=== PATIENT | male | born 1965 | race Asian ===

== ENCOUNTER 2024-06-28 12:19 | Emergency (ER) | payer BC ==
[~2024-06-28] VITALS: Ht 172.7 cm; Wt 68.0 kg
[2024-06-28 12:31] VITALS: BP_SYST 153; PULSE 95; RESP 15; TEMP 98.7; O2SAT 97
[2024-06-28 13:28] LABS: BASOPHILS # (AUTO) 0.1 K/uL (0.0-0.2); BASOPHILS % (AUTO) 0.9 % (0.0-2.0); EOSINOPHILS # (AUTO) 0.4 K/uL (0.0-0.4); EOSINOPHILS % (AUTO) 5.3 % (0.0-4.0); HEMATOCRIT 44.7 % (36-54); HEMOGLOBIN 14.7 g/dL (14.0-18.0); LYMPHOCYTES # (AUTO) 1.4 K/uL (1.0-5.5); LYMPHOCYTES % (AUTO) 19.8 % (20.5-51.5); MEAN CORPUSCULAR HEMOGLOBIN 30 pg (27-31); MEAN CORPUSCULAR HGB CONC 33 % (32-36); MEAN CORPUSCULAR VOLUME 91 fL (79.0-98.0); MONOCYTES # (AUTO) 0.3 K/uL (0.0-1.0); MONOCYTES % (AUTO) 4.8 % (1.7-9.3); NEUTROPHILS # (AUTO) 4.8 K/uL (1.8-7.7); NEUTROPHILS % (AUTO) 69.2 % (40.0-70.0); PLATELET COUNT (AUTO) 261 K/uL (130-430); RED BLOOD CELL COUNT(AUTO) 4.93 MIL/uL (4.2-6.2); RED CELL DISTRIBUTION WIDTH 14.3 % (9.0-15.0)
[2024-06-28 13:46] LABS: INR 0.9 (0.80-1.20); PROTHROMBIN TIME 9.9 SECS (9.5-12.5)
[2024-06-28] MEDS ORDERED: CLIN-142 PO (14:00)
[2024-06-28 14:05] LABS: CALCIUM 8.9 mg/dL (8.4-11.0); CREATININE 0.98 mg/dL (0.55-1.30); POTASSIUM 3.8 mmol/L (3.5-5.1)
[2024-06-28] MEDS ORDERED: LEVO-62 PO (14:12)
[2024-06-28] MEDS: levoFLOXacin 500 MG TABLET PO ONE (14:44)
[2024-06-28 15:02] VITALS: BP_SYST 153; PULSE 95; RESP 15; TEMP 98.7; O2SAT 97
== END 2024-06-28 15:00 | disposition home or self-care (01) ==
LOC: SED 12:19
DX: H61.002 Unspecified perichondritis of left external ear (principal); L03.114 Cellulitis of left upper limb; I10 Essential (primary) hypertension; Z79.2 Long term (current) use of antibiotics
CPT/HCPCS: 36415; 80048; 83605; 85025; 85610; 85730; 99283